=== PATIENT | male | born 1975 | race Caucasian/White ===

== ENCOUNTER 2017-02-26 21:16 | Emergency (ER) | payer BC ==
[2017-02-26 21:23] VITALS: BP 125/83
[2017-02-26] MEDS ORDERED: DOXYcycline CAP(*) 100 MG PO ONE (21:34)
--- NOTE | 2017-02-26 21:38 | UC ---
Skin Complaint HPI - HPI Summary HPI Summary: 41 y/o male presents to the urgent care c/o of a tick in his belly button. He was mowing his lawn and after he finished, he noticed the tick. Patient denies fever, rash, KIM, pain, SOB, N/V/D. - History of Current Complaint Chief Complaint: UCSkin Time Seen by Provider: 02/26/17 21:24 Stated Complaint: TICK REMOVAL Hx Obtained From: Patient Onset/Duration: Sudden Onset, Lasting Hours, Still Present Skin Exposure Onset/Duration: Hours Ago Timing: Constant Onset Severity: Mild Current Severity: Mild Pain Intensity: 0 Pain Scale Used: 0-10 Numeric Location: Other - tick bite at the beely button Aggravating: Touch Alleviating: Nothing Associated Signs & Symptoms: Negative: Nausea, Vomiting, Fever, Rash, Tenderness , Red Streaks Related History: Insect Bite/Sting - Allergy/Home Medications Allergies/Adverse Reactions: Allergies Allergy/AdvReac Type Severity Reaction Status Date / Time No Known Allergies Allergy Verified 02/26/17 21:23 Home Medications: Home Medications Ranitidine TAB (NF) [Zantac TAB (NF)] 150 mg PO BID 02/26/17 [History Confirmed 02/26/17] Review of Systems Constitutional: Negative Skin: Other - tick bite at the beely button Eyes: Negative ENT: Negative Respiratory: Negative Cardiovascular: Negative Gastrointestinal: Negative Genitourinary: Negative Motor: Negative Neurovascular: Negative Musculoskeletal: Negative Neurological: Negative Psychological: Negative All Other Systems Reviewed And Are Negative: Yes PMH/Surg Hx/FS Hx/Imm Hx Previously Healthy: Yes - Surgical History Surgical History: Yes Surgery Procedure, Year, and Place: appendectomy - Family History Known Family History: Positive: Cardiac Disease, Hypertension, Diabetes - Social History Occupation: Employed Full-time Lives: With Family Alcohol Use: Occasionally Substance Use Type: None Smoking Status (MU): Never Smoked Tobacco Physical Exam Triage Information Reviewed: Yes Appearance: Well-Appearing, No Pain Distress, Well-Nourished, Obese Vital Signs: Initial Vital Signs Temp 98.4 F 02/26/17 21:17 Pulse 72 02/26/17 21:17 Resp 14 02/26/17 21:17 BP 125/83 02/26/17 21:17 Pulse Ox 97 02/26/17 21:17 Vital Signs Reviewed: Yes Eye Exam: Normal Eyes: Positive: Conjunctiva Clear ENT Exam: Normal ENT: Positive: Normal ENT inspection, Hearing grossly normal, Pharynx normal, TMs normal Neck exam: Normal Neck: Positive: Supple, Nontender, No Lymphadenopathy Respiratory Exam: Normal Respiratory: Positive: Chest non-tender, Lungs clear Cardiovascular Exam: Normal Cardiovascular: Positive: RRR, No Murmur, Pulses Normal Abdominal Exam: Normal Abdomen Description: Positive: Nontender, No Organomegaly, Soft Bowel Sounds: Positive: Present Musculoskeletal Exam: Normal Musculoskeletal: Positive: Strength Intact, ROM Intact, No Edema Neurological Exam: Normal Psychological Exam: Normal Skin: Positive: Other - alive tick at the umbilicus, no erythema, swelling, or tenderness on palpation. Course/Dx - Course Course Of Treatment: Tick bite: Hx obtained. PE abnormal finding: alive tick at the umbilicus, no erythema, swelling, or tenderness on palpation. Tick was removed from umbilicus using the twister technique. After tick removal and the skin cleansing. Pt advised to observe the area for the development or Erythema Migrans for upto 30 days following exposure. Components of the tick saliva can cause transient erythema that should no be confused with Erythema Migrans.Antibiotic prophylaxis with Doxycycline given to the patient to prevent lyme Disease.. Pt tolerated well medication. - Differential Diagnoses - Skin Complaint Differential Diagnoses: Cellulitis, Scabies, Tick Born Illness, Tinea - Diagnoses Provider Diagnoses: tick bite Discharge - Discharge Plan Condition: Stable Disposition: HOME Patient Education Materials: Tick Bite (ED) Referrals: [facility] – [place] [facility] REFERRAL [Outside] Additional Instructions: Please observe the area for the development or Erythema Migrans for upto 30 days following exposure. Components of the tick saliva can cause transient erythema that should no be confused with Erythema Migrans.Antibiotic prophylaxis with Doxycycline given today the patient to prevent lyme Disease..
== END 2017-02-26 21:44 | disposition home or self-care (01) ==
LOC: UCCORT 21:16
DX: S30.861A Insect bite (nonvenomous) of abdominal wall, initial encounter (principal); W57.XXXA Bitten or stung by nonvenomous insect and other nonvenomous arthropods, initial encounter; Y92.9 Unspecified place or not applicable
CPT/HCPCS: 99202; A9270-GY; G0463